=== PATIENT | female | born 1955 | race Caucasian/White ===

== ENCOUNTER 2020-09-24 14:47 | Outpatient (CLI) | payer MEDICARE, OTHER, SELFPAY | END 2020-09-24 14:48 | disposition home or self-care (01) | LOC: ANHCOVIDVC 14:47 | PROVIDERS: PCP Family Medicine Adolescent Medicine | DX: Z23 Encounter for immunization (principal) | CPT/HCPCS: 0001A; 91300 ==

== ENCOUNTER 2020-10-15 14:47 | Outpatient (CLI) | payer MEDICARE, OTHER, SELFPAY | END 2020-10-15 14:48 | disposition home or self-care (01) | LOC: ANHCOVIDVC 14:47 | PROVIDERS: PCP Family Medicine Adolescent Medicine | DX: Z23 Encounter for immunization (principal) | CPT/HCPCS: 0002A; 91300 ==

== ENCOUNTER → 2022-05-21 07:50 | Outpatient (CLI) | payer MEDICARE, SELFPAY ==
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
== END ==
PROVIDERS: PCP Family Medicine Adolescent Medicine; Visit Provider Family Medicine Adolescent Medicine
DX: M19.012 Primary osteoarthritis, left shoulder (principal); M75.22 Bicipital tendinitis, left shoulder
CPT/HCPCS: 73221

== ENCOUNTER → 2022-09-30 09:04 | Outpatient (CLI) | payer MEDICARE, SELFPAY ==
--- NOTE | ~2022-09-30 | US_ITS ---
Limited Abdominal Sonogram: Real-time sonographic imaging of the right upper quadrant was performed. Clinical History: Epigastric pain Findings: The liver appears normal with no evidence of mass lesion or bile duct dilatation. Main por paul vein demonstrates normal direction of flow. The gallbladder is well distended, and appears normal with no evidence of gallstone or wall thickening. The common bile duct measures 3 mm. The visualize d pancreas, aorta, and IVC are unremarkable. Probable mild to moderate right hydronephrosis incidenta lly noted. Impression: Probable mild to moderate right hydronephrosis incidentally noted. No other significant findings. Reviewed, dictated and finalized at location . Impression: Probable mild to moderate right hydronephrosis incidentally noted. No other significant findings.
== END ==
PROVIDERS: PCP Family Medicine Adolescent Medicine; Visit Provider Physician Assistant
DX: R10.13 Epigastric pain (principal); R10.811 Right upper quadrant abdominal tenderness
CPT/HCPCS: 76705

== ENCOUNTER 2024-04-17 10:47 | Outpatient (CLI) | payer MEDICARE, SELFPAY ==
--- NOTE | ~2024-04-17 | XR_ITS ---
EXAM: XR lumbar spine 2-3V DATE: 04/17/2024 11:29 HISTORY: M54.31 - Sciatica, right side . COMPARISON: 01/30/2010. 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 Surgical clips in the left pelvis. Mild lumbar scoliosis. 5 lumbar-type tanvi tebral bodies. 7 mm anterolisthesis at L3-4. 8 mm anterolisthesis at L4-5. Partial sacralization of L 5. Vertebral body heights maintained. Mild disc space narrowing at L2-3. Moderate disc space narrowin g at L3-4. Severe disc space narrowing at L4-5. Severe mid and lower lumbar facet atrophy and scleros is IMPRESSION: Grade 1 anterolistheses at L3-4 and L4-5. Multilevel degenerative disc disease and facet arthropathy. Reviewed, dictated and finalized at location K. IMPRESSION: Grade 1 anterolistheses at L3-4 and L4-5. Multilevel degenerative d isc disease and facet arthropathy.
== END 2024-04-17 10:48 | disposition home or self-care (01) ==
PROVIDERS: PCP Nurse Practitioner Family; Visit Provider Nurse Practitioner Family
DX: M54.31 Sciatica, right side (principal); M51.369 Other intervertebral disc degeneration, lumbar region without mention of lumbar back pain or lower extremity pain; M47.816 Spondylosis without myelopathy or radiculopathy, lumbar region
CPT/HCPCS: 72100

== ENCOUNTER 2024-04-23 07:44 | Outpatient (CLI) | payer MEDICARE, SELFPAY ==
--- NOTE | ~2024-04-23 | MR_ITS ---
MRI of the lumbar spine Clinical History: Right sciatica Technique: Axial T2-weighted images, and sagittal T1-weighted, T2-weighted, and and T2 fat-sat images were acquired. COMPARISON: 01/30/2010 Findings: There appear to be 6 lumbar type vertebral bodies. There is 4 mm anterolisthesis of L4 over L5. There is 7 mm anterolisthesis of L5 over L6. No suspicious bone marrow signal abnormality seen. At L1-L2, there is moderate degenerative disc 9. There is mild disc bulge and mild to moderate facet arthropathy. No central canal stenosis or neural foraminal narrowing. At L2-L3, there is no disc bulge or herniation. There is moderate to advanced facet arthropathy. No c entral canal stenosis or neural foraminal narrowing. At L3-L4, there is moderate degenerative distended. There is disc bulge with severe facet arthropathy . No michelle central canal stenosis. There is moderate to advanced left neural foraminal narrowing, and moderate right neural foraminal narrowing. At L4-L5, there is diffuse disc bulge and severe facet arthropathy, severe spinal canal stenosis/thec al sac compression. There is mild to moderate bilateral neural foraminal narrowing. At L5-L6, there is diffuse disc bulge with severe facet arthropathy. There is mild central canal sten osis. There is moderate to advanced right neural foraminal narrowing, and moderate left neural forami nal narrowing. Paravertebral soft tissues are unremarkable. Impression: Advanced degenerative spondylosis, especially the lower lumbar spine, as detailed above. Reviewed, dictated and finalized at [facility]. Impression: Advanced degenerative spondylosis, especially the lower lumbar spine, as detail ed above.
== END 2024-04-23 07:45 | disposition home or self-care (01) ==
LOC: MICIMG 07:45
PROVIDERS: PCP Nurse Practitioner Family; Visit Provider Nurse Practitioner Family
DX: M54.31 Sciatica, right side (principal); M47.896 Other spondylosis, lumbar region
CPT/HCPCS: 72148

== ENCOUNTER 2024-06-27 10:57 | Outpatient (CLI) | payer MEDICARE, SELFPAY ==
--- NOTE | ~2024-06-27 | XR_ITS ---
EXAMINATION: XR scoliosis survey DATE: 06/27/2024 11:39 INDICATION: Spondylosis without myelopathy or radiculopathy. TECHNIQUE: Anteroposterior and lateral views of the entire spine standing with breast escalante were ob tained. COMPARISON: Chest 2 views 09/10/2016 FINDINGS: Right femoral head stands 2 mm higher than the left. There is moderate osteoarthritis of th e hips. There are surgical clips from left inguinal hernia repair. There are small ribs at L1. L5 is a transitional segment. There is 14 degrees levoscoliosis from T8 to L1 by the Nunez method. There is kyphosis of thoracic spine. There is chronic anterior wedging of multiple thoracic vertebral bodies. There is 5 mm anterolisthesis of L4 on L5 and 7 mm anterolisthesis of L5 on S1. There is moderate tho racic and lumbar spondylosis. There is a chronic rim calcified mass in the area of the spleen, likely an old hematoma or old infection. IMPRESSION: 1. 14 degrees levoscoliosis from T8 to L1. 2. Thoracic kyphosis. 3. Moderate thoracic and lumbar spondylosis. Reviewed, dictated and finalized at location A. STERED VASCULAR TECHNOLOGIST (RVT)
--- NOTE | ~2024-06-27 | XR_ITS ---
3 VIEWS LUMBAR SPINE Ordering provider: Chandra Duncan MD History: . M47.816 - Spondylosis without myelopathy or radiculopathy... . Comparison: None. FINDINGS: VERTEBRAL BODIES:Spondylolisthesis seen at the level of L4-L5 and L3-L4. No visible fracture or subl uxation. DISK SPACES: Narrowing of the disc L2-L3, L3-L4, L4-L5 and L5-S1 of moderate degree. Multilevel facet joint disease. SOFT TISSUES: Calcified lesion is seen in the left upper quadrant of the abdomen. Aortic atherosclero tic changes. IMPRESSION: No acute osseous abnormality lumbar spine. Spondylolisthesis at the level of L3-L4 and L4-L5. Calcified lesion in the left upper quadrant of the abdomen slightly a cyst. Reviewed, dictated and finalized at location A. CLINICAL REVIEW IMPRESSION: No acute osseous abnormality lumbar spine. Spondylolisthesis at the level of L3 -L4 and L4-L5. Calcified lesion in the left upper quadrant of the abdomen slightly a cyst.
== END 2024-06-27 10:58 | disposition home or self-care (01) ==
PROVIDERS: PCP Nurse Practitioner Family; Visit Provider Neurological Surgery
DX: M47.816 Spondylosis without myelopathy or radiculopathy, lumbar region (principal); M47.894 Other spondylosis, thoracic region
CPT/HCPCS: 72082; 72110

== ENCOUNTER 2025-03-21 14:29 | Outpatient (CLI) | payer MEDICARE, SELFPAY ==
--- NOTE | ~2025-03-21 | XR_ITS ---
XR shoulder LT min 2V 03/21/2025 14:49 Indication: Osteoarthritis Procedure: 4 views left shoulder Comparison: No prior studies for comparison. Findings: There is severe left glenohumeral joint osteoarthritis. Acromioclavicular joint intact. No acute fracture, subluxation or dislocation. Osteopenia. Impression: 1: Severe left glenohumeral joint osteoarthritis. Reviewed, dictated and finalized at location O. Impression: 1: Severe left glenohumeral joint osteoarthritis.
== END 2025-03-21 14:30 | disposition home or self-care (01) ==
LOC: MICIMG 14:31
PROVIDERS: PCP Family Medicine Adolescent Medicine; Visit Provider Family Medicine Adolescent Medicine
DX: M19.012 Primary osteoarthritis, left shoulder (principal)
CPT/HCPCS: 73030

== ENCOUNTER 2025-05-15 14:08 | Outpatient (CLI) | payer MEDICARE, SELFPAY ==
--- NOTE | ~2025-05-15 | CT_ITS ---
EXAMINATION: CT_STKSHOLDWO_CT DATE: 05/15/2025 14:31 INDICATION: Left shoulder osteoarthritis. Preoperative planning. TECHNIQUE: Computed tomography (CT) of the left shoulder was performed without intravenous contrast. Automated exposure control and iterative reconstruction technique were employed. The dose-length product was 227.74 mGy-cm. COMPARISON: Left shoulder radiographs 03/21/2025 FINDINGS: Alignment is normal. No fracture. There is severe osteoarthritis of glenohumeral joint including bone volume loss of glenoid. There is mild acromioclavicular joint osteoarthritis. There is a left glenohumeral joint effusion with loose bodies. There is no asymmetric fatty atrophy of the rotator cuff muscle bellies. IMPRESSION: 1. Severe left glenohumeral joint osteoarthritis. 2. Left glenohumeral joint effusion with loose bodies. 3. Mild left acromioclavicular joint osteoarthritis. Reviewed, dictated and finalized at location E.
[2025-05-15 14:51] LABS: Hematocrit 46.1 % (37.0-47.0); Hemoglobin 14.9 g/dL (12.0-15.0)
[2025-05-15 14:56] LABS: Albumin Level 4.7 g/dL (3.5-5.1); Estimated Glomerular Filt Rate > 60
--- OUTSIDE RECORDS SUMMARY | 2025-05-15 15:57 | XMS_ITS | Clinical Summary ---
Author Organization [facility] Care Team Providers Care Physical Therapist Clinic Director Name Role Phone Unavailable Primary Care Provider Unavailabl e Social History Tobacco Use Types Packs/Day Years Used Date Smoking Tobacco: Never Assessed Comments Unknown Sex and Gender Information Value Date Recorded Sex Assigned at Not on file Legal Sex Female 11:29 AM CDT Gender Identity Not on file Sexual Orientation Not on file Plan of Treatment Health Maintenance Due Date Last Done Comments Hepatitis C Virus (HCV) Screening 1955 TdaP Immunization 1954 Cologuard 1999 Colonoscopy 1999 Colorectal Cancer Screening 1999 Immunochemical Fecal Occult Blood 1999 Influenza Immunization (#1) 03/18/202503/19, 05/25/2019 SARS-COV-2 Immunization ( season) 2025 10/15/2020, 09/24/2020 Respiratory Syncytial Virus (RSV) Immunization (Adult) (1 - 1-dose 75+ series) 2029 Pneumococcal Immunization (5 0+ years) Completed 05/29/2020, 05/25/2019 Zoster Immunization Completed 07/27/2020, 04/09/2020 Hepatitis B Immunization Aged Out No longer eligible based on patient's age to complete this topic Human Papillomavirus (HPV) Immunization Aged Out No longer eligible b ased on patient's age to complete this topic Meningococcal Immunization (ACWY) Aged Out No longer eligible b ased on patient's age to complete this topic Rotavirus Immunization Aged Out No lo nger eligible based on patient's age to complete this topic
--- OUTSIDE RECORDS SUMMARY | 2025-05-15 15:57 | XMS_ITS | Clinical Summary ---
Author Organization [facility] Address [address] [place] [address] Care Team Providers Care Florist Helper Name Role Phone Unavailable Primary Care Provider Unavailabl e Source Comments [facility],non-owned Affiliates and Associated Physician Practices is amultiple site organization consisting of ambulatory clinics and hospital sitesin [place], [place], [place] and [place]. This disclosure is being madepursuant to the Care Everywhere program and may not contain all information available regarding this patient. Last updated 18.[facility] [place] Social History Tobacco Use Types Packs/Day Years Used Date Smoking Tobacco: Never Assessed Comments Unknown Sex and Gender Information Value Date Recorded Sex Assigned at Not on file Legal Sex Female 6:29 AM QA TEST LEAD Gender Identity Not on file Sexual Orientation Not on file Plan of Treatment Health Maintenance Due Date Last Done Comments BONE DENSITY TESTING 1955 COLOGUARD (AGES 45-75) - COL ON CA SCREENING 1954 COLON MONITORING 1954 COLONOSCOPY - COLON CA SCREENING 1954 CT COLONOGRAPHY - COLON CA SCREENING 1954 Colorectal Cancer Screening 1954 FIT - COLON CA SCREENING 1954 FLEX SIG - COLON CA SCREENING 1954 LIPID TESTING 1954 MAMMOGRAM 1954 HEPATITIS C SCREENING 03/28/1972 DTAP/TDAP/TD VACCINES (1 - Tdap) 1973 PNEUMOCOCCAL VACCINE 50+ (1 of 1 - PCV) 2004 ZOSTER VACCINE (1 of 2) 2004 DEPRESSION SCREENING 07/18/2024 COVID-19 VACCINE (1 - 2023-2 5 season) 2025 INFLUENZA VACCINE (#1) 2025 Respiratory Syncytial Virus (RSV) Vaccine Pt: or over 60 yrs (1 - 1-dose 75+ series) 2029 HEPATITIS B VACCINE Aged Out No longe r eligible based on patient's age to complete this topic HIB VACCINE Aged Out No longer eligi ble based on patient's age to complete this topic HPV VACCINE Aged Out No longer eligi ble based on patient's age to complete this topic MENINGOCOCCAL (Group B) VACC INE SHARED DECISION-MAKING Aged Out No longer eligibl e based on patient's age to complete this topic MENINGOCOCCAL GROUPS A/C/Y/W VACCINE Aged Out No longer eligible b ased on patient's age to complete this topic
--- OUTSIDE RECORDS SUMMARY | 2025-05-15 15:57 | XMS_ITS | Clinical Summary ---
Author Organization [facility] Address [address] [place] [address] Care Team Providers Care Rubber Roller Grinder Name Role Phone Erwin Blackburn MD Primary Care Provider [phone]- [phone] Family History Medical History Relation Comments Breast Cancer Neg Hx Social History Tobacco Use Types Packs/Day Years Used Date Smoking Tobacco: Never Assessed Comments Unknown Sex and Gender Information Value Date Recorded Sex Assigned at Not on file Legal Sex Female 7:00 PM CDT Gender Identity Not on file Sexual Orientation Not on file Plan of Treatment Health Maintenance Due Date Last Done Comments Colorectal Cancer Screening Colonoscopy (10 Years) 1954 Hepatitis C 1972 DTaP, Tdap and Td Vaccines (1 - Tdap) 1973 Annual Medicare Wellness Visit 2019 COVID-19 Vaccine ( season) 2025 11/29/2021, 07/28/2021, 10/15/2020, Additional history exists Influenza Adult (#1) 2025 05/25/2019 Mammogram Screening 08/20/2026 08/20/2024, 3 RSV Immunization or 60+ Years (1 - 1-dose 75+ series) 2029 Pneumococcal Vaccine: 50+ Years Completed 05/29/2020, 05/25/2019 Zoster Vaccines Completed 07/27/2020, 04/09/2020 Dexa Scan (General) Completed 08/20/2024 Hepatitis A Vaccines Aged Out No long er eligible based on patient's age to complete this topic Meningococcal B Vaccine Aged Out No l onger eligible based on patient's age to complete this topic Meningococcal Vaccine Aged Out No petros donna eligible based on patient's age to complete this topic RSV Immunizations Under 20 Months Aged Out No longer eligible based on patient's age to complete this topic Procedures Procedure Name Priority Date/Time Associated Diagnosis Comments MG SCREENING W LANDEN RICARDO DIGI Routine 08/20/2024 1:30 PM BAR GAUGER AND LUBRICATOR TENDER Encounter for other screening for malignant neoplasm of breast BONE DENSITY/DEXA Routine 08/20/2024 12: 50 PM BAR GAUGER AND LUBRICATOR TENDER Encounter for screening for osteoporosis from Last 3 Months or Most Recently Relevant to Health Maintenance Results * MG SCREENING W LANDEN RICARDO DIGI (08/20/2024 1:30 PM BAR GAUGER AND LUBRICATOR TENDER) Anatomical Region Laterality Modality Breast Bilateral Mammography 08/22/2024 7:49 AM BAR GAUGER AND LUBRICATOR TENDER Impressions 08/22/2024 7:52 AM BAR GAUGER AND LUBRICATOR TENDER ===== IMPRESSION: ===== 1. Stable mammographic appearance with no new findings to suggest malignancy in either breast. Assessment: ACR BI-RADS 2 - BENIGN FINDING(S) Recommendation: 1:Routine Screening Bilateral Comments: Ordered By: SHERRI HOOPER Interpreted By: Daniela Enriquez, 08/22/2024 7:49 AM Narrative 08/22/2024 7:52 AM BAR GAUGER AND LUBRICATOR TENDER [facility] [address] [place] [address] EXAMINATION: Digital bilateral screening mammogram with 3-D tomosynthesis EXAM DATE/TIME: 08/20/2024 12:29 PM REASON FOR EXAM: SCREENING MAMMO COMPARISON: 08/22/2018. 08/11/2022 Technique: Digital screening mammography of both breasts was performed in addition to 3-D Tomosynthesis technique. This study was read with the assistance of a computer-aided detection system. Tissue density: There are scattered areas of fibroglandular density. Findings: There is no new focal asymmetry, dominant mass lesion, area of skin thickening, or cluster of suspicious appearing calcifications in either breast to suggest malignancy. us Sherri Hooper FISH TECHNOLOGIST MAMMO Final Result * BONE DENSITY/DEXA (08/20/2024 12:50 PM BAR GAUGER AND LUBRICATOR TENDER) Anatomical Region Laterality Modality Bone Bone Density 08/21/2024 8:20 PM BAR GAUGER AND LUBRICATOR TENDER Impressions 08/21/2024 8:21 PM BAR GAUGER AND LUBRICATOR TENDER IMPRESSION: WHO Classification: Osteopenia RECOMMENDATIONS: All patients should ensure an adequate intake of dietary calcium and vitamin D. The NOF recommend adults under the age of 50 need 1000 mg of calcium and 400-800 IU of vitamin D daily. Effective therapy for the prevention and treatment of osteoporosis include bisphosphonates. Follow-up: People with diagnosed cases of osteoporosis or at high risk for fracture should have regular bone mineral density test. For patients eligible for Medicare, routine testing is allowed once every 2 years. Testing frequency can be increased to one year for patients who have rapidly progressing disease, those who are receiving or discontinuing medical therapy to restore bone mass, or have additional risk factors. Referred By: SHERRI HOOPER Interpreted By: Dallas Patiño MD, 08/21/2024 8:20 PM Narrative 08/21/2024 8:21 PM BAR GAUGER AND [place] [address] EXAMINATION: BONE DENSITY/DEXA INDICATIONS: Encounter for screening for osteoporosis. Postmenopausal TECHNIQUE: DEXA bone mineral density evaluation was performed in the AP projection over the lumbar spine and both hips utilizing standard imaging techniques. ASSESSMENT: The BMD measured at the AP spine L1-L4 is 1.024 g/cm? with a T-score of -0.2. The BMD measured at the left femoral neck is 0.797 g/cm? with a T-score of -0.5. The BMD measured at the left hip is 0.902 g/cm? with a T-score of -0.3. The BMD measured at the right femoral neck is 0.672 g/cm? with a T-score of - 1.6. The BMD measured at the right hip is 0.837 g/cm? with a T-score of -0.9. FRAX 10-year fracture risk: Major Osteoporotic Fracture: 9.8% Hip Fracture: 1.4% Procedure Note Dallas Patiño MD - 08/21/2024 [facility] [address] [place] [address] EXAMINATION: BONE DENSITY/DEXA INDICATIONS: Encounter for screening for osteoporosis. Postmenopausal TECHNIQUE: DEXA bone mineral density evaluation was performed in the APprojection over the lumbar spine and both hips utilizing standard imagingtechniques. ASSESSMENT: The BMD measured at the AP spine L1-L4 is 1.024 g/cm? with a T-score of-0.2. The BMD measured at the left femoral neck is 0.797 g/cm? with a T-score of-0.5. The BMD measured at the left hip is 0.902 g/cm? with a T-score of -0.3. The BMD measured at the right femoral neck is 0.672 g/cm? with a T-scoreof -1.6. The BMD measured at the right hip is 0.837 g/cm? with a T-score of -0.9. FRAX 10-year fracture risk: Major Osteoporotic Fracture: 9.8% Hip Fracture: 1.4% IMPRESSION: WHO Classification: Osteopenia RECOMMENDATIONS: All patients should ensure an adequate intake of dietary calcium andvitamin D. The NOF recommend adults under the age of 50 need 1000 mg ofcalcium and 400-800 IU of vitamin D daily. Effective therapy for theprevention and treatment of osteoporosis include bisphosphonates. Follow-up: People with diagnosed cases of osteoporosis or at high risk for fractureshould have regular bone mineral density test. [facility], routine testing is allowed once every 2 years. Testing frequencycan be increased to one year for patients who have rapidly progressingdisease, those who are receiving or discontinuing medical therapy torestore bone mass, or have additional risk factors. Referred By: SHERRI HOOPER Interpreted By: Dallas Patiño MD, 08/21/2024 8:20 PM Sherri Hooper FISH TECHNOLOGIST DEXA Final Result from Last 3 Months or Most Recently Relevant to Health Maintenance Insurance MEDICARE [facility] Care Teams Rubber Roller Grinder Relationship Specialty Start Date End Date Erwin Blackburn MD [address] [address] PCP - General FAMILY PRACTICE 07/14/22
== END 2025-05-15 14:09 | disposition home or self-care (01) ==
PROVIDERS: PCP Family Medicine Adolescent Medicine; Visit Provider Orthopaedic Surgery
DX: M19.012 Primary osteoarthritis, left shoulder (principal); Z01.818 Encounter for other preprocedural examination; M25.412 Effusion, left shoulder
CPT/HCPCS: 36415; 73200; 82040; 82565; 85014; 85018

== ENCOUNTER 2025-05-21 15:05 | Outpatient (CLI) | payer MEDICARE, SELFPAY ==
--- NOTE | 2025-05-21 15:38 | ECG_ITS ---
Test Date: 2025-05-21 15:47:43 Measurements Intervals [place] Rate: 85 P: 62 HI: 142 QRS: -12 QRSD: 91 T: 32 QT: 371 QTc: 442 Interpretive Statements SINUS RHYTHM No previous ECG available for comparison Electronically Signed On 05-21-2025 21:23:04 FUR CLIPPER by Fawad Esposito M.D.
--- OUTSIDE RECORDS SUMMARY | 2025-05-21 16:28 | XMS_ITS | Clinical Summary ---
Author Organization [facility] Care Team Providers Care Livery Car Driver Name Role Phone Unavailable Primary Care Provider [...]
--- OUTSIDE RECORDS SUMMARY | 2025-05-21 16:28 | XMS_ITS | Clinical Summary ---
Author Organization [facility] Address [address] [place] [address] Care Team Providers Care Lead Enterprise Architect Name Role Phone Erwin Blackburn MD Primary Care Provider [phone]- [phone] Family History Medical History Relation Comments Breast [...] LANDEN RICARDO DIGI Routine 08/20/2024 1:30 PM KNIFE SETTER GRINDER MACHINE Encounter for other screening for malignant neoplasm of breast BONE DENSITY/DEXA Routine 08/20/2024 12: 50 PM KNIFE SETTER GRINDER MACHINE Encounter for screening for osteoporosis from Last 3 Months or Most Recently Relevant to Health Maintenance Results * MG SCREENING W LANDEN RICARDO DIGI (08/20/2024 1:30 PM KNIFE SETTER GRINDER MACHINE) Anatomical Region Laterality Modality Breast Bilateral Mammography 08/22/2024 7:49 AM KNIFE SETTER GRINDER MACHINE Impressions 08/22/2024 7:52 AM KNIFE SETTER GRINDER MACHINE ===== IMPRESSION: ===== 1. Stable mammographic appearance with no new findings to suggest malignancy in either breast. Assessment: ACR BI-RADS 2 - BENIGN FINDING(S) Recommendation: 1:Routine Screening Bilateral Comments: Ordered By: SHERRI HOOPER Interpreted By: Daniela Enriquez, 08/22/2024 7:49 AM Narrative 08/22/2024 7:52 AM KNIFE SETTER GRINDER MACHINE [facility] [address] [place] [address] EXAMINATION: Digital bilateral screening mammogram with 3-D [...] breast to suggest malignancy. us Sherri Hooper REMOTE PILOT OPERATOR MAMMO Final Result * BONE DENSITY/DEXA (08/20/2024 12:50 PM KNIFE SETTER GRINDER MACHINE) Anatomical Region Laterality Modality Bone Bone Density 08/21/2024 8:20 PM KNIFE SETTER GRINDER MACHINE Impressions 08/21/2024 8:21 PM KNIFE SETTER GRINDER MACHINE IMPRESSION: WHO Classification: Osteopenia RECOMMENDATIONS: All patients [...] 08/21/2024 8:20 PM Narrative 08/21/2024 8:21 PM KNIFE [place] [address] EXAMINATION: BONE DENSITY/DEXA INDICATIONS: Encounter for screening [...] Procedure Note Dallas Patiño MD - 08/21/2024 [facility] [address] [place] [address] EXAMINATION: BONE DENSITY/DEXA INDICATIONS: Encounter for screening [...] bone mineral density test. [facility], routine testing is allowed once every 2 years. Testing frequencycan be increased to one year for patients who have rapidly progressingdisease, those who are receiving or discontinuing medical therapy torestore bone mass, or have additional risk factors. Referred By: SHERRI HOOPER Interpreted By: Dallas Patiño MD, 08/21/2024 8:20 PM Sherri Hooper REMOTE PILOT OPERATOR DEXA Final Result from Last 3 Months or Most Recently Relevant to Health Maintenance Insurance MEDICARE [facility] Care Teams Lead Enterprise Architect Relationship Specialty Start Date End Date Erwin Blackburn MD [phone] [id number] PCP - General FAMILY PRACTICE 07/14/22
== END 2025-05-21 15:06 | disposition home or self-care (01) ==
LOC: ANHCARD 15:09
PROVIDERS: PCP Family Medicine Adolescent Medicine; Visit Provider Orthopaedic Surgery
DX: Z01.818 Encounter for other preprocedural examination (principal); M19.012 Primary osteoarthritis, left shoulder
CPT/HCPCS: 93005